=== PATIENT | female | born 1985 | race Caucasian/White ===

== ENCOUNTER → 2018-02-22 | Outpatient (CLI) | payer OTHER ==
[2018-02-22 16:31] LABS: HEMATOCRIT 39.3 % (36.0-47.0); HEMOGLOBIN 13.4 g/dL (12.0-15.5); MEAN CORPUSCULAR HEMOGLOBIN 30.7 pg (27.0-33.4); MEAN CORPUSCULAR HGB CONC 34.2 g/dL (32.0-36.0); MEAN CORPUSCULAR VOLUME 90 fl (80-97); PLATELET COUNT 252 10^3/uL (150-450); RED BLOOD COUNT 4.38 10^6/uL (3.72-5.28); RED CELL DISTRIBUTION WIDTH 13.4 % (11.5-14.0); WHITE BLOOD COUNT 5.7 10^3/uL (4.0-10.5)
[2018-02-22 17:10] LABS: FREE T4 (FREE THYROXINE) 0.8 ng/dL (0.78-2.19)
[2018-02-22 17:23] LABS: THYROID STIMULATING HORMONE 1.96 uIU/mL (0.47-4.68)
[2018-02-22 18:00] LABS: FOLATE > 20.00 ng/mL (>2.76)
== END ==
LOC: OD 15:24
PROVIDERS: ATTEND Psychiatry & Neurology Psychiatry
DX: F33.1 Major depressive disorder, recurrent, moderate (principal); Z79.899 Other long term (current) drug therapy
CPT/HCPCS: 36415; 82607; 82652; 82746; 84439; 84443; 85027